=== PATIENT | male | born 1995 | race Caucasian/White ===

== ENCOUNTER 2017-05-22 07:17 | Emergency (ER) | payer OTHER ==
[~2017-05-22] VITALS: Ht 177.8 cm; Wt 77.0 kg
[2017-05-22 07:28] VITALS: BP 122/68; PULSE 74; RESP 15; TEMP 97.8; O2SAT 98
--- NOTE | 2017-05-22 07:40 | PD ---
HPI Chief Complaint: Injury Time Seen by Provider: 07:35 Travel History International Travel<30 days: No Contact w/Intl Traveler<30days: No Traveled to known affect area: No History of Present Illness HPI 21-year-old male presents to the emergency department with complaint of right ankle pain after rolling it last night playing golf. He said he got excited and stepped on a ledge and rolled his ankle. Denies paresthesias, loss of sensation to the affected extremity. Has been ambulatory on the affected extremity. Says he has been limping. Rates pain 7/10. Describes it as a throbbing sensation. Pain is more to the lateral than medial aspect. Has tried icing it for symptom management. Has not taken any medications for symptom management. Worse with ambulation and palpation. Better at rest. No known allergies. Primary care providers in [place]. Denies significant past medical history. Has no other medical complaints. No other modifying factors or associated signs and symptoms. PFSH Social History Tobacco Use: No Allergies-Medications (Allergen,Severity, Reaction): Coded Allergies: No Known Allergies (Unverified , 05/22/17) Reported Meds & Prescriptions Reported Meds & Active Scripts Active No Active Prescriptions or Reported Medications Review of Systems Except as stated in HPI: all other systems reviewed are Neg Physical Exam Narrative GENERAL: Well-nourished, well-developed male patient, in no acute distress SKIN: Warm and dry. HEAD: Atraumatic. Normocephalic. EYES: Pupils equal and round. No scleral icterus. No injection or drainage. ENT: Mucosa pink and moist. Airway patent. NECK: Trachea midline. CARDIOVASCULAR: Regular rate. RESPIRATORY: No accessory muscle use. GASTROINTESTINAL: Flat. MUSCULOSKELETAL: Right ankle with point tenderness to the lateral and medial malleolus zone with palpation, lateral worse than medial; lateral aspect with edema noted; without ecchymosis or erythema; no obvious deformity. Right lower extremity is supple and nontense with 2+ pedal pulse and sensory intact. No obvious deformities. No clubbing. No cyanosis. No edema. NEUROLOGICAL: Awake and alert. Oriented 3. No obvious cranial nerve deficits. Motor grossly within normal limits. Normal speech. PSYCHIATRIC: Appropriate mood and affect; insight and judgment normal. Data Data Last Documented VS Vital Signs Date Time Temp Pulse Resp B/P (MAP) Pulse Ox O2 Delivery O2 Flow Rate FiO2 05/22/17 07:28 97.8 74 15 122/68 (86) 98 Orders Orders Ankle, Complete ([id number]) (05/22/17 07:40) Ice/Cold Pack (05/22/17 07:40) Crutches (05/22/17 07:40) Ibuprofen (Motrin) (05/22/17 07:45) MDM Medical Decision Making Medical Screen Exam Complete: Yes Emergency Medical Condition: Yes Medical Record Reviewed: Yes Differential Diagnosis Ankle sprain, ankle fracture, ankle injury Narrative Course 21-year-old male with right ankle injury. Ibuprofen and right ankle x-ray ordered. 0826: Left ankle x-ray concluded: Soft tissue swelling, predominantly around the lateral malleolus with no acute osseous injury. Sumanth bandage, ankle stirrup splint, crutches provided for support. Ibuprofen prescribed for home. Instructed patient to follow-up if symptoms persist greater than 7-10 days. Instructed patient to follow up with primary care provider. Patient verbalizes understanding and agreement with treatment plan. Patient is medically cleared and stable for discharge. Discussed reasons to return to the emergency department. Patient agrees with treatment plan. The patients vital signs are stable and the patient is stable for outpatient follow-up and treatment. Patient discharged home, stable and in no acute distress. Diagnosis Primary Impression: Right ankle injury Qualified Codes: S99.911A - Unspecified injury of right ankle, initial encounter Referrals: [facility] Primary [facility] Physician Patient Instructions: Ankle Sprain (ED), Crutch Instructions (ED), General Instructions Additional Instructions: Tylenol or ibuprofen as directed and as needed for pain and inflammation Rest, ice, compress, and elevate extremity to decrease pain and inflammation Ankle Brace for support Sumanth bandage for compression and support Crutches for support Avoid aggravating activity; increase activity as tolerated Follow-up with primary care provider Return to the emergency department immediately with worsening of symptoms Med/Other Pt SpecificInfo: Prescription(s) given Scripts Ibuprofen (Ibuprofen) 800 Mg Tab 800 MG PO Q6HR Y for PAIN, #30 TAB 0 Refills Prov: Trang Aaron 05/22/17 Disposition: 01 DISCHARGE HOME Condition: Stable Trang Aaron May 22, 2017 07:40
[2017-05-22] MEDS ORDERED: IBUPROFEN 800 MG TAB PO ONE (07:45)
--- NOTE | 2017-05-22 08:24 | RADRPT ---
EXAM DATE/TIME: 05/22/2017 07:50 [place] COMPARISON: No previous studies available for comparison. INDICATIONS : Right ankle injury, twisted playing game last night. MEDICAL HISTORY : None. SURGICAL HISTORY : None. ENCOUNTER: Initial ACUITY: 1 day PAIN SCORE: 8/10 LOCATION: Right ankle lateral FINDINGS: Three view exam was performed of the right ankle. The bony structures are in normal alignment. Soft tissue swelling predominately around the ankle mortise but there is no obvious fracture or dislocatio n. The ankle mortise is intact. No radiopaque foreign bodies are seen. Bony mineralization is norm al. CONCLUSION: Soft tissue swelling, predominantly around the lateral malleolus with no acute osseous injury. Bacilio Coto MD on May 22, 2017 at 8:21 Board Certified Radiologist. This report was verified electronically.
[2017-05-22] MEDS ORDERED: IBUP1TAB7 PO (08:28)
== END 2017-05-22 09:05 | disposition home or self-care (01) ==
LOC: NEPD 07:17
DX: S99.911A Unspecified injury of right ankle, initial encounter (principal); X50.9XXA Other and unspecified overexertion or strenuous movements or postures, initial encounter; Y93.53 Activity, golf
CPT/HCPCS: 73610; 99283; E0113; L1906